=== PATIENT | male | born 1990 | race Two or more races ===

== ENCOUNTER 2023-02-05 12:30 | Emergency (ER) | payer OTHER ==
[~2023-02-05] VITALS: Ht 188 cm; Wt 125.0 kg
[2023-02-05 12:44] VITALS: BP 120/81
[2023-02-05] MEDS ORDERED: AMOX1TAB16 PO (13:19)
[2023-02-05 14:23] LABS: HEPATITIS B SURFACE AB 4.1 mIU/mL
[2023-02-05 14:34] LABS: HEPATITIS B SURFACE ANTIGEN NEGATIVE
[2023-02-07 08:13] LABS: HIV SCREEN 4G Non Reactive (Non Reactive)
== END 2023-02-05 13:41 | disposition home or self-care (01) ==
LOC: ER 12:30
DX: S61.501A Unspecified open wound of right wrist, initial encounter (principal); W50.3XXA Accidental bite by another person, initial encounter; Y93.89 Activity, other specified; Y92.89 Other specified places as the place of occurrence of the external cause; Y99.8 Other external cause status
CPT/HCPCS: 36415; 87389; 99283